=== PATIENT | male | born 1990 | race Caucasian/White ===

== ENCOUNTER 2017-11-25 11:23 | Emergency (ER) | payer OTHER ==
[2017-11-25] MEDS ORDERED: SODIUM CHLORIDE 0.9% 1,000 ML IV ONE ×2 (11:53→12:55)
[2017-11-25 12:01] LABS: BASOPHILS % (AUTO) 0.5 %; EOSINOPHILS # (AUTO) 0.1 10^3/uL (0.0-0.7); EOSINOPHILS % (AUTO) 0.7 %; HGB - HEMOGLOBIN 14.9 g/dL (14.0-18.0); LYMPHOCYTES # (AUTO) 2.7 10^3/uL (1.5-3.5); LYMPHOCYTES % (AUTO) 25.5 %; MEAN CORPUSCULAR HEMOGLOBIN 30.3 pg (27.0-31.0); MEAN CORPUSCULAR VOLUME 89.2 fL (80.0-94.0); MEAN PLATELET VOLUME 8.1 fL (7.4-11.4); MONOCYTES % (AUTO) 9.8 %; NEUTROPHILS # (AUTO) 6.7 10^3/uL (1.5-6.6); NEUTROPHILS % (AUTO) 63.5 %; PLT - PLATELET COUNT 188 10^3/uL (130-450); RED CELL DISTRIBUTION WIDTH 12.5 % (12.0-15.0); WHITE BLOOD COUNT 10.6 x10^3/uL (4.8-10.8)
[2017-11-25 12:12] LABS: ALBUMIN 4.6 g/dL (3.2-5.5); ALBUMIN/GLOBULIN RATIO 1.7 (1.0-2.2); BILIRUBIN,TOTAL 0.9 mg/dL (0.2-1.0); CALCIUM 9.4 mg/dL (8.5-10.3); CREATININE 0.9 mg/dL (0.6-1.2); TOTAL PROTEIN 7.3 g/dL (6.7-8.2)
--- NOTE | 2017-11-25 12:27 | XRAY Report ---
EXAM: CHEST RADIOGRAPHY EXAM DATE: 11/25/2017 12:05 PM. CLINICAL HISTORY: Dyspnea. Lightheadedness. Broken clavicle yesterday. COMPARISON: None. TECHNIQUE: 1 view. FINDINGS: Lungs/Pleura: No focal opacities evident. No pleural effusion. No pneumothorax. Mediastinum: Within exam limitations, the cardiomediastinal contour is normal. Other: There is an acute comminuted fracture of the middle third of the right clavicle. There is supe rior displacement of the medial fragment measuring approximately 5 mm. The remainder of the visualize d bones appear intact. IMPRESSION: 1. No acute cardiopulmonary abnormality. 2. Acute comminuted minimally displaced fracture of the middle third of the right clavicle. [facility] Referring Provider Line: [phone] SITE ID: [id number]
--- NOTE | 2017-11-25 12:44 | ED Physician Documentation ---
PD HPI SYNCOPE - Stated complaint Stated Complaint: DIZZY/LIGHTHEADED - Chief complaint Chief Complaint: General - History obtained from History obtained from: Patient, Family - History of Present Illness Witnessed: Witnessed Preceding symptoms: Light headed Contributing factors: Noxious stimulae (clavicle fracture) Similar symptoms before: Has not had sx before - Treatment prior to arrival Treatment prior to arrival: hydrocodone - Additional information Additional information: The patient is a 27-year-old male who presents with lightheadedness and shortness of breath. Yesterday he fractured his right clavicle in a skateboarding accident. He has been using Vicodin since then for pain control, and states that he has been getting lightheaded since taking the medication. He has taken 2 Vicodin today, and presents now because of increasing lightheadedness with near-syncope. He denies chest pain, abdominal pain, nausea or vomiting. He denies cough or fever. He denies headache, or focal numbness or weakness. He reports a past history of "passing out." Review of Systems Constitutional: reports: Other (Lightheadedness.). denies: Fever Eyes: denies: Decreased vision Ears: denies: Tinnitus/ringing Nose: denies: Congestion Throat: denies: Sore throat Cardiac: denies: Chest pain / pressure, Palpitations Respiratory: denies: Cough GI: denies: Abdominal Pain, Nausea, Vomiting : denies: Dysuria, Incontinent Skin: denies: Rash Musculoskeletal: reports: Extremity pain (Right clavicular region.). denies: Neck pain, Back pain Neurologic: denies: Focal weakness, Numbness, Headache PD PAST MEDICAL HISTORY - Past Medical History Past Medical History: No Cardiovascular: None Respiratory: None Neuro: None Endocrine/Autoimmune: None GI: None : None HEENT: None Psych: None Musculoskeletal: Other (Right clavicular fracture yesterday.) Derm: None - Past Surgical History Past Surgical History: No - Present Medications Home Medications: Ambulatory Orders Medication Instructions Recorded Confirmed Hydrocodone/Acetaminophen [Vicodin 1 each PO 11/25/17 5-300 mg Tablet] Ibuprofen [Motrin] 800 mg PO Q8H PRN 11/25/17 11/25/17 - Allergies Allergies/Adverse Reactions: Allergies Allergy/AdvReac Type Severity Reaction Status Date / Time No Known Drug Allergies Allergy Verified 03/13/18 12:14 - Social History Does the pt smoke?: No Smoking Status: Never smoker Does the pt drink ETOH?: No Does the pt have substance abuse?: No PD ED PE NORMAL - Vitals Vital signs reviewed: Yes (hypotensive with a blood pressure 65/29, and bradycardic with a pulse of 52) - General General: Alert and oriented X 3, Well developed/nourished, Other (Marfanoid body habitus.) - HEENT HEENT: Atraumatic, PERRL, EOMI, Moist mucous membranes, Pharynx benign - Neck Neck: Supple, no meningeal sign, No adenopathy, No JVD - Cardiac Cardiac: No murmur, Other (Slightly bradycardic rate, regular rhythm.) - Respiratory Respiratory: No respiratory distress, Clear bilaterally - Abdomen Abdomen: Soft, Non tender, No organomegaly - Back Back: No CVA TTP, No spinal TTP - Derm Derm: No rash, Other (Pale-appearing initially.) - Extremities Extremities: No edema, No calf tenderness / cord, Other (Tenderness to palpation over the right clavicular region. Wearing a right arm sling.) - Neuro Neuro: Alert and oriented X 3, No motor deficit, No sensory deficit, Normal speech Results - Vitals Vitals: Oxygen O2 Source Room air - EKG (time done) 11:40 Rate: Rate (enter#) (39) Rhythm: Other (junctional rhythm) [place]: Other (borderline right axis deviation, +92.) Ischemia: ST elevation c/w repol Compare to prior EKG: Old EKG unavailable Computer interpretation: Disagree with computer (Junctional rhythm rather than atrial fibrillation.) - Labs Labs: Laboratory Tests 11/25/17 11/25/17 11/25/17 11:45 11:45 11:45 WBC 10.6 RBC 4.90 Hgb 14.9 Hct 43.7 MCV 89.2 MCH 30.3 MCHC 34.0 RDW 12.5 Plt Count 188 MPV 8.1 Neut # 6.7 H Lymph # 2.7 Mcmullen # 1.0 Eos # 0.1 Baso # 0.0 Absolute Nucleated RBC 0.00 Nucleated RBC % 0.0 Sodium 136 Potassium 3.5 Chloride 100 L Carbon Dioxide 27 Anion Gap 9.0 BUN 12 Creatinine 0.9 Estimated GFR (MDRD) 102 Glucose 125 H Lactic Acid Calcium 9.4 Total Bilirubin 0.9 AST 24 ALT 17 Alkaline Phosphatase 59 Troponin I < 0.04 Total Protein 7.3 Albumin 4.6 Globulin 2.7 Albumin/Globulin Ratio 1.7 Lipase 14 L 11/25/17 12:05 WBC RBC Hgb Hct MCV MCH MCHC RDW Plt Count MPV Neut # Lymph # Mcmullen # Eos # Baso # Absolute Nucleated RBC Nucleated RBC % Sodium Potassium Chloride Carbon Dioxide Anion Gap BUN Creatinine Estimated GFR (MDRD) Glucose Lactic Acid 1.7 Calcium Total Bilirubin AST ALT Alkaline Phosphatase Troponin I Total Protein Albumin Globulin Albumin/Globulin Ratio Lipase - Rads (name of study) CXR Radiology: Prelim report reviewed, EMP read contemporaneously, See rad report ( No acute cardiopulmonary abnormality. Acute comminuted minimally displaced fracture of the middle third of the right clavicle.) CT Chest/abd angio Radiology: Prelim report reviewed, EMP read contemporaneously, See rad report ( Normal chest CT angiogram. No dissection or aneurysm.) PD MEDICAL DECISION MAKING - ED course Complexity details: reviewed results, re-evaluated patient, considered differential, d/w patient, d/w family ED course: The patient's presentation is most consistent with hypotension with near- syncope. His hypotension is likely associated with vaso-depression associated with his clavicle fracture, as well as effect from taking narcotic medication for his pain. Consideration was given to the possibility of aortic dissection given his marfanoid body habitus. CT angiogram of the chest and abdomen revealed no angiographic abnormalities. Likewise, I doubt pulmonary embolus as a cause for his symptoms. EKG, CBC, chemistry panel, and chest x-ray are unremarkable. Treatment in the emergency department included administration of normal saline 2 L IV. The patient's blood pressure and heart rate subsequently normalized, he felt subjectively much improved, and demonstrated ability to ambulate without lightheadedness. I discussed with him and his family members the results of his workup, expected course of healing of his clavicle fracture, as well as potentially worrisome signs or symptoms that should prompt reevaluation in the emergency department. Departure - Departure Disposition: 01 Home, Self Care Clinical Impression: Vasodepressor syncope Condition: Stable Instructions: ED Near Syncope Vasovagal Follow-Up: JAY Moore [Provider Group] Comments: Refrain from using Vicodin. You can use ibuprofen, up to 800 mg 3 times daily if needed for pain. Drink plenty of fluids. Follow up with your primary physician within 1 week. Call to schedule appointment. Return to the emergency department if you develop increasing lightheadedness, shortness of breath, or otherwise worsening symptoms. Discharge Date/Time: 11/25/17 15:42
[2017-11-25] MEDS ORDERED: IOPAMIDOL-300 100 ML VIAL ONE (12:57)
[2017-11-25] MEDS ORDERED: IOPAMIDOL-300 100 ML VIAL IVP ONE (13:51)
--- NOTE | 2017-11-25 14:29 | CT Preliminary Report ---
Exam: CT CHEST ANGIO (AORTA) IMPRESSION: Normal chest CT angiogram. No aneurysm or dissection. [facility] SITE ID: [id number]
--- NOTE | 2017-11-25 14:29 | CT Report ---
EXAM: CT ANGIOGRAM CHEST EXAM DATE: 11/25/2017 01:50 PM. CLINICAL HISTORY: Syncope in Marfanoid male. COMPARISON: None. TECHNIQUE: Routine helical imaging was performed through the chest in the arterial phase. IV contrast : 100 cc Isovue-300. Reconstructions: Coronal, sagittal, and 3D MIP reconstructions of the aorta. FINDINGS: Vascular Structures: Normal. No aneurysm, dissection, or significant atherosclerotic disease of the t horacic aorta. The visualized pulmonary arteries are within normal limits. Lungs/Pleura: No consolidation, nodules, or edema. No effusions or pneumothorax. Mediastinum: Normal heart size. No pericardial effusion. No coronary artery calcifications. No lympha denopathy. Upper Abdomen: Unremarkable. Other: None. IMPRESSION: Normal chest CT angiogram. No aneurysm or dissection. [facility] Referring Provider Line: [phone] SITE ID: [id number]
--- NOTE | 2017-11-25 14:34 | CT Report ---
EXAM: CT ANGIOGRAM ABDOMEN AND PELVIS WITH CONTRAST EXAM DATE: 11/25/2017 01:50 PM. CLINICAL HISTORY: Syncope in Marfanoid male; ? Aortic dissection. COMPARISONS: None. TECHNIQUE: Routine helical CT angiogram imaging was performed through the abdomen and pelvis in the a rterial phase. IV contrast: ISOVUE 300 100mL. Enteric contrast: No. Reconstructions: Coronal, sagitt al, and 3D MIP reconstructions. In accordance with CT protocol optimization, one or more of the following dose reduction techniques w ere utilized for this exam: automated exposure control, adjustment of mA and/or KV based on patient s ize, or use of iterative reconstructive technique. FINDINGS: Vasculature: Normal. No aneurysm, dissection, or significant atherosclerotic disease of the abdominal aorta and iliac arteries. The visualized mesenteric and solid organ vascular structures are also wit hin normal limits. Lung Bases: Normal. Abdominal Solid Organs: Normal. The liver, spleen, pancreas, adrenal glands, gallbladder and kidneys are normal in size and demonstrate no masses or abnormal enhancement. Peritoneal Cavity: Normal. No free fluid, free air, or acute inflammatory process. Normal appendix. Pelvic Organs: Normal. The bladder and visualized pelvic organs are within normal limits. Bones: No significant abnormality. Other: None. IMPRESSION: Normal abdomen and pelvis CT angiogram. No aneurysm or dissection. [facility] Referring Provider Line: [phone] SITE ID: [id number]
[2017-11-25 15:35] VITALS: BP 142/81
== END 2017-11-25 15:42 | disposition home or self-care (01) ==
LOC: ED 11:23
DX: R55 Syncope and collapse (principal); S42.021A Displaced fracture of shaft of right clavicle, initial encounter for closed fracture; V00.131A Fall from skateboard, initial encounter; Y93.51 Activity, roller skating (inline) and skateboarding
CPT/HCPCS: 36415; 71045; 71275; 74174; 80053; 83605; 83690; 84484; 85025; 93005; 96360; 96361; 99283; 99284; Q9967